=== PATIENT | male | born 1950 | race Caucasian/White ===

== ENCOUNTER → 2017-08-08 | Outpatient (REF) | payer MEDICARE, OTHER | LOC: M LAB REF 16:27 | DX: 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, including tongue (principal) | CPT/HCPCS: 88305 ==

== ENCOUNTER → 2019-11-26 | Outpatient (REF) | payer MEDICARE, OTHER | LOC: M LAB REF 17:01 | PROVIDERS: ATTEND Family Medicine | DX: M10.9 Gout, unspecified (principal) ==

== ENCOUNTER → 2020-11-28 | Outpatient (REF) | payer MEDICARE, OTHER | LOC: M LAB REF 16:24 | PROVIDERS: ATTEND Family Medicine | DX: M10.9 Gout, unspecified (principal) ==

== ENCOUNTER → 2021-03-28 | Outpatient (REF) | payer MEDICARE, OTHER | LOC: M LAB REF 18:27 | PROVIDERS: ATTEND Otolaryngology | DX: 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, including tongue (principal) ==

== ENCOUNTER → 2021-03-29 | Outpatient (CLI) | payer MEDICARE, OTHER ==
[2021-03-29 11:52] LABS: BLOOD UREA NITROGEN 16 MG/DL (7-18); GLOMERULAR FILTRATION RATE > 60.0 (>42)
== END ==
LOC: M LAB 10:17
PROVIDERS: ATTEND Otolaryngology
DX: Z01.812 Encounter for preprocedural laboratory examination (principal)

== ENCOUNTER → 2021-04-04 | Outpatient (CLI) | payer MEDICARE, OTHER ==
[~2021-04-04] MED LIST: ISOVUE-370 76% 100ML VIAL As Ordered ONE
--- NOTE | 2021-04-04 12:11 | REPVR ---
PROCEDURE INFORMATION: Exam: CT Neck With Contrast Exam date and time: 04/04/2021 11:31 AM Age: 70 years old Clinical indication: Other: Leukoplakia of oral mucosa, including tongue TECHNIQUE: Imaging protocol: Computed tomography images of the neck with contrast. Radiation optimization: All CT scans at this facility use at least one of these dose optimization techniques: automated exposure control; mA and/or kV adjustment per patient size (includes targeted exams where dose is matched to clinical indication); or iterative reconstruction. Contrast material: ISOVUE 370; Contrast volume: 75 ml; Contrast route: INTRAVENOUS (IV); COMPARISON: MRI ORBIT FACE NECK W/O FOLL W 07/10/2015 5:57 PM FINDINGS: Paranasal sinuses: Mild mucosal thickening is present in the maxillary sinuses. Nasopharynx: Unremarkable. Oropharynx: Unremarkable. No significant tonsillar enlargement. Hypopharynx: Unremarkable. Larynx: Unremarkable. Normal epiglottis. Retropharyngeal space: Unremarkable. Submandibular/Parotid glands: Normal. Glands are normal in size. Thyroid: Normal. No enlarged or calcified nodules. Lymph nodes: Unremarkable. No lymphadenopathy. Trachea: Visualized trachea is unremarkable. Lungs: Unremarkable as visualized. Bones/joints: Moderate/severe degenerative changes of the cervical spine are present. There is moderate/severe spinal canal stenosis and severe bilateral neural foraminal narrowing at C4-C5, C5-C6, and C6-C7 due to posterior disc osteophyte complexes and uncinate spurring. Soft tissues: Unremarkable. No significant soft tissue swelling. IMPRESSION: No acute abnormality. Electronically signed by: Guillermo Portillo On 04/04/2021 12:07:52 PM
== END ==
LOC: M RAD 10:57
PROVIDERS: ATTEND Otolaryngology
DX: 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, including tongue (principal)
CPT/HCPCS: 70491; Q9967

== ENCOUNTER → 2021-04-18 | Outpatient (CLI) | payer MEDICARE, OTHER ==
[~2021-04-18] MED LIST changes: +ADV100INH INH; +ATOR40TA75 PO; +BAYE81TA10 PO; +CLOP75TA2 PO; -ISOVUE-370 76% 100ML VIAL As Ordered ONE; +NITR4TASL SL; +OMEP-218 PO; +PROAAER10 INH; +THERTAB52 PO
== END ==
LOC: M LABSMTC 10:54
PROVIDERS: ATTEND Anesthesiology
DX: Z01.818 Encounter for other preprocedural examination (principal); Z11.52 Encounter for screening for COVID-19

== ENCOUNTER 2021-04-23 08:36 | Day surgery (SDC) | payer MEDICARE, OTHER ==
[~2021-04-23] VITALS: Ht 177.8 cm; Wt 94.3 kg
[~2021-04-23 08:36] MED LIST changes: +NS 1,000 ML IV ONE
--- OUTSIDE RECORDS SUMMARY | 2021-04-23 09:14 | CCD | Continuity of Care Document ---
Author Author Yuri NOLASCO MD Organization Unknown Address [address] [facility] [address] [place] [address] Phone [phone] Care Team Providers Care Ship Harbor Pilot Name Role Phone Justin Garrison JOSE AUTM [phone] Pernell Reyes M.D. AUTM [phone] Problems Active Problems Provider Date Allergic asthma without status asthmaticus Katerina Bahena Onset: 07/07/2013 Basal Cell Carcinoma Skin Lower Limb Including Hip Vishnu patel M.D. Onset: 07/07/2013 Leukoplakia of oral mucosa Abdirahman Nolasco MD Onset: 2015 Social History Type Date Description Comments Sex Unknown ETOH Use 2-3 A Week Tobacco Use Start: Unknown Patient has never smoked Recreational Drug Use Denies Drug Use Allergies and adverse reactions Active Allergies Criticality Reaction | Severity Comments Date Penicillin Unable to assess criticality hives 07/07/2013 Medications Active Medications SIG Qnty Indications Ordering Provide r Date Advair Diskus 250-50mcg/Dose Aeros ol 1 puff bid. rinse mouth after using 60units Unknown Atorvastatin Calcium 40mg Tablets 1 po qd Unknown Clopidogrel Bisulfate 75mg Tablets Unknown Aspirin 81mg Tablets 1 by mouth every day Unknown Proair HFA 108(90Base) mcg/Act Aer osol 2 puffs four times a day as needed Unknown Nitroglycerin Unknown Omeprazole 20mg Capsules DR Take One Capsule By Mouth Daily Unknown 0 Nystatin 160554Sstn/ML Suspension 5ml swish in the mouth several minuts before swallowing four times a day for 7 days Unknown Immunizations Description No Information Available Vital Signs Date Vital Result Comment 04/09/2021 7:06am Height 70 inches 5'10" Weight 225.00 lb BMI (Body Mass Index) 32.3 kg/m2 Shannon Body Weight 166 lb Weight 102.060 kg BSA (Body Surface Area) 2.19 m2 03/28/2021 7:10am Height 70 inches 5'10" Weight 225.00 lb BMI (Body Mass Index) 32.3 kg/m2 Shannon Body Weight 166 lb Weight 102.060 kg BSA (Body Surface Area) 2.19 m2 Results Test Acquired Date Facility Test Result H/L Range Note Xray 04/04/2021 [facility] Radiology Dept [address] [place] [address] [id number] [phone] CT Neck Soft Tissue W Contrast <pending> BUN & Creatinine ([facility]) 03/29/2021 [facility] Main Lab [address] [place] [address] [id number] [phone] Blood Urea Nitrogen 16 mg/dL Normal 7-18 1 Creatinine With GFR 03/29/2021 [facility] Main Lab [address] [place] [address] [id number] [phone] Creatinine For GFR 1.00 mg/dL Normal 0.70-1.30 Glomerular Filtration Rate > 60.0 Normal >42 2 Laboratory test finding 03/28/2021 [facility] Main Lab [address] [place] [address] [id number] [phone] Pathology Request For Service (SEE NOTE) 3 1 note:<nlbl:demographic_chang ed> 2 Units are mL/min/1.73 m2 Chronic Kidney Disease Staging per NKF: Stage I & II GFR >=60 Normal to Mildly Decreased Stage III GFR 30-59 Moderately Decreased Stage IV GFR 15-29 Severely Decreased Stage V GFR <15 Very Little GFR Left ESRD GFR <15 on GRIP ASSEMBLER 3 FINAL DIAGNOSIS Left lateral oral tongue, lesion, biopsy: Hyperkeratotic squamous mucosa with moderate squamous atypia. The case was also sent to [facility] for consultation, see report [id number] scanned in EMR under pathology module. 04/04/2021 - 1536 CLINICAL DIAGNOSIS Lesion 03/29/2021 - 1054 GROSS DIAGNOSIS Received in formalin labeled "Yuri Arthur, designated left lateral oral tongue" is a 0.4 cm punch of oral mucosa. All in one. - 03/29/2021 - 1054 PRELIMINARY DIAGNOSIS . 04/04/2021 - 1536 Signed Don Conner MD 03/30/2021 1245 (Prelim) Signed Don Conner MD 04/04/2021 1536 Procedures Date Code Description Status 03/28/2021 40238 Office/Outpatient Established Mo d MDM 30-39 Min Completed 03/28/2021 89670 Biopsy Tongue Anterior Two-Third s Completed 03/14/2021 23606 Office/Outpatient Established Mo d MDM 30-39 Min Completed 11/08/2020 90559 Office/Outpatient Established SF MDM 10-19 Min Completed Medical Devices Description No Information Available Encounters Type Date Location Provider Dx Diagnosis Office Visit 03/28/2021 7:00a [facility] Abdirahman Nolasco MD 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, including tongue Office Visit 03/14/2021 8:15a [facility] Abdirahman Nolasco MD 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, including tongue Office Visit 11/08/2020 8:15a [facility] Abdirahman Nolasco MD 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, including tongue Assessments Date Code Description Provider 04/09/2021 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, incl uding tongue Abdirahman Nolasco MD 03/28/2021 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, incl uding tongue Abdirahman Nolasco MD 03/14/2021 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, incl uding tongue Abdirahman Nolasco MD 11/08/2020 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, incl uding tongue Abdirahman Nolasco MD Plan of Treatment Future Appointment(s):* 05/10/2021 8:00 am - Abdirahman Nolasco MD at [facility] 04/09/2021 - Abdirahman Nolasco MD* 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, including tongue* Follow up:* 2 m Functional Status Description No Information Available Mental Status Description No Information Available Referrals Description No Information Available
--- OUTSIDE RECORDS SUMMARY | 2021-04-23 09:14 | CCD | Continuity of Care Document ---
Author Author Yuri NOLASCO MD Organization Unknown Address [address] [facility] [address] [place] [address] Phone [phone] Care Team Providers Care Online Merchandising Coordinator Name Role Phone Justin Garrison JOSE AUTM [phone] Pernell Reyes M.D. AUTM [phone] Problems Active Problems Provider Date Allergic asthma [...] Capsule By Mouth Daily Unknown 0 Nystatin [id number]/ML Suspension 5ml swish in the mouth several minuts before swallowing four times a day for 7 days Unknown Immunizations Description No Information Available Vital Signs Date Vital Result Comment 03/28/2021 7:10am Height 70 inches 5'10" Weight 225.00 lb BMI (Body Mass Index) 32.3 kg/m2 Reynolds Body Weight 166 lb Weight 102.060 kg BSA (Body Surface Area) 2.19 m2 03/14/2021 8:12am Height 70 inches 5'10" Weight 220.00 lb BMI (Body Mass Index) 31.6 kg/m2 Reynolds Body Weight 166 lb Weight 99.792 kg BSA (Body Surface Area) 2.17 m2 Results Test Acquired Date Facility Test Result H/L Range Note Xray 04/04/2021 [facility] Radiology Dept [address] [place] [address] [phone] CT Neck Soft Tissue W Contrast <pending> BUN & Creatinine ([facility]) 03/29/2021 [facility] Main Lab [address] [place] [address] [id number] [phone] Blood Urea Nitrogen 16 mg/dL Normal 7-18 1 Creatinine With GFR 03/29/2021 [facility] Main Lab [address] [place] [address] [id number] [phone] Creatinine For GFR 1.00 mg/dL Normal 0.70-1.30 Glomerular Filtration Rate > 60.0 Normal >42 2 Laboratory test finding 03/28/2021 [facility] Main Lab [address] [place] [address] [phone] Pathology Request For Service (SEE NOTE) 3 1 note:<nlbl:demographic_chang ed> 2 Units are mL/min/1.73 m2 Chronic Kidney Disease Staging per NKF: Stage I & II GFR >=60 Normal to Mildly Decreased Stage III GFR 30-59 Moderately Decreased Stage IV GFR 15-29 Severely Decreased Stage V GFR <15 Very Little GFR Left ESRD GFR <15 on WOODWORKER HELPER 3 FINAL DIAGNOSIS Left lateral oral tongue, lesion, biopsy: Hyperkeratotic squamous mucosa with moderate squamous atypia. The case was also sent to [facility] for consultation, see report [id number] scanned in EMR under pathology module. 04/04/2021 [...] 1536 Procedures Date Code Description Status 03/28/2021 72544 Office/Outpatient Established Mo d MDM 30-39 Min Completed 03/28/2021 90549 Biopsy Tongue Anterior Two-Third s Completed 03/14/2021 88195 Office/Outpatient Established Mo d MDM 30-39 Min Completed 11/08/2020 13594 Office/Outpatient Established SF MDM 10-19 Min Completed Medical Devices Description No Information Available Encounters Type Date Location Provider Dx Diagnosis Office Visit 03/28/2021 7:00a [facility] Abdirahman Nolasco MD 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, including tongue Office Visit 03/14/2021 8:15a [facility] Abdirahman Nolasco MD 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, including tongue Office Visit 11/08/2020 8:15a [facility] Abdirahman Nolasco MD 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, including tongue Assessments Date Code Description Provider 03/28/2021 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, incl uding tongue Abdirahman Nolasco MD 03/14/2021 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, incl uding tongue Abdirahman Nolasco MD 11/08/2020 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, incl uding tongue Abdirahman Nolasco MD Plan of Treatment Future Appointment(s):* 04/09/2021 7:00 am - Abdirahman Nolasco MD at [facility] * 05/10/2021 8:00 am - Abdirahman Nolasco MD at [facility] 03/28/2021 - Abdirahman Nolasco MD* 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
--- OUTSIDE RECORDS SUMMARY | 2021-04-23 09:15 | CCD | Continuity of Care Document ---
Author Author Yuri DICKERSON M.D. Organization Unknown Address [address] [place] [address] Phone [phone] Care Team Providers Care Furnace Attendant Name Role Phone Pernell Reyes M.D. AUTM [phone] Problems Active Problems Provider Date History of polyp of colon Daniella Jenkins Onset: Social History Type Date Description Comments Sex Unknown ETOH Use Occasionally Tobacco Use Start: Unknown Patient has never smoked Allergies and adverse reactions Active Allergies Criticality Reaction | Severity Comments Date Penicillin Unable to assess criticality Itch 09/29/2012 Medications Active Medications SIG Qnty Indications Ordering Provide r Date Suprep Bowel Prep Kit 17.5-3.13-1.6GM/177ML Solution use as directed 354ml Joseph Dickerson M.D. 02/27/2021 Lipitor 40mg Tablets take one tablet by mouth every day 90tabs Pernell Reyes M.D. 01/12/[address] 1 tabs by mouth every day 90caps Unknown Advair Diskus 100-50mcg/Dose Aerosol Unknown Multiple Vitamin Tablets Unknown Clopidogrel Bisulfate 75mg Tablets Take One Tablet By Mouth Every Day Unknown Aspirin 81mg Tablets DR Unknown Proair HFA 108(90Base) mcg/Act Aerosol Unknown Nitrostat 0.4mg Tablets Sub Unknown Immunizations Description No Information Available Vital Signs Date Vital Result Comment 02/27/2021 3:30pm Height 70 inches 5'10" Weight 222.00 lb BP Systolic 117 mmHg BP Diastolic 84 mmHg Heart Rate 80 /min BMI (Body Mass Index) 31.9 kg/m2 Weight 100.699 kg Body Temperature 97.2 F 01/18/2016 10:10am Height 70 inches 5'10" Weight 233.00 lb BP Systolic 111 mmHg BP Diastolic 72 mmHg Heart Rate 70 /min BMI (Body Mass Index) 33.4 kg/m2 Weight 105.689 kg Results Description No Information Available Procedures Date Code Description Status 02/27/2021 83787 Office/Outpatient New Low MDM 30 -44 Minutes Completed Medical Devices Description No Information Available Encounters Type Date Location Provider Dx Diagnosis Office Visit 02/27/2021 3:00p Main Office Joseph Dickerson M.D. Z 86.010 Personal history of colonic polyps Assessments Date Code Description Provider 02/27/2021 Z86.010 Personal history of colonic poly ps Joseph Dickerson M.D. Plan of Treatment Future Appointment(s):* 04/10/2021 7:30 am - Jose at Main Office * 04/23/2021 12:45 pm - Joseph Dickerson M.D. at Main Office 02/27/2021 - Joseph Dickerson M.D.* Z86.010 Personal history of colonic polyps* Comments:* 70 year old white male in no acute distress. His last colonoscopy was in 2015. Tubular adenoma polyp was biopsied. Hemorrhoids and Diverticulosis were noted.He has daily bowel movements. Denies rectal bleeding, abdominal pain, unexplained weight loss or a family history of colon cancer or colon polyps.Appetite is healthy. He denies nausea, vomiting, dysphagia or GERD. Plan:1. Colonoscopy to cecum2. Informed consent. Functional Status Description No Information Available Mental Status Description No Information Available Referrals Description No Information Available
--- OUTSIDE RECORDS SUMMARY | 2021-04-23 09:15 | CCD ---
Author Author [facility] Organization [facility] Address Unknown Phone Unavailable Care Team Providers Care Lastex Operator Name Role Phone Don Conner MD Unavailable Unavailable Don Conner MD Unavailable Unavailable Don Conner MD Unavailable Unavailable Don Conner MD Unavailable Unavailable Don Conner MD Unavailable Unavailable Don Conner MD Unavailable Unavailable Kallie Dickerson MD Unavailable Unavailable Kallie Dickerson MD Unavailable Unavailable Kallie Dickerson MD Unavailable Unavailable Kallie Dickerson MD Unavailable Unavailable Kallie Dickerson MD Unavailable Unavailable Kallie Dickerson MD Unavailable Unavailable Kallie Dickerson MD Unavailable Unavailable Kallie Dickerson MD Unavailable Unavailable Kallie Dickerson MD Unavailable Unavailable Kallie Dickerson MD Unavailable Unavailable Kallie Dickerson MD Unavailable Unavailable Kallie Dickerson MD Unavailable Unavailable Kallie Dickerson MD Unavailable Unavailable Kallie Dickerson MD Unavailable Unavailable Kallie Dickerson MD Unavailable Unavailable Kallie Dickerson MD Unavailable Unavailable Kallie Dickerson MD Unavailable Unavailable Kallie Dickerson MD Unavailable Unavailable Kallie Dickerson MD Unavailable Unavailable Kallie Dickerson MD Unavailable Unavailable Kallie Dickerson MD Unavailable Unavailable Kallie Dickerson MD Unavailable Unavailable Kallie Dickerson MD Unavailable Unavailable Kallie Dickerson MD Unavailable Unavailable Kallie Dickerson MD Unavailable Unavailable Kallie Dickerson MD Unavailable Unavailable Kallie Dickerson MD Unavailable Unavailable Kallie Dickerson MD Unavailable Unavailable Jayla S Joseph MERRILL Unavailable Unavailable Jayla S Joseph MERRILL Unavailable Unavailable Jayla S Joseph MERRILL Unavailable Unavailable Jayla S Joseph MERRILL Unavailable Unavailable Jayla S Joseph MERRILL Unavailable Unavailable Jayla S Joseph MERRILL Unavailable Unavailable Jayla S Joseph MD Unavailable Unavailable Jayla S Joseph MD Unavailable Unavailable Jayla S Joseph MERRILL Unavailable Unavailable Jayla S Joseph MERRILL Unavailable Unavailable Jayla S Joseph MERRILL Unavailable Unavailable Jayla S Joseph MERRILL Unavailable Unavailable Jayla S Joseph MERRILL Unavailable Unavailable Jayla S Joseph MERRILL Unavailable Unavailable Jayla S Joseph MERRILL Unavailable Unavailable Jayla S Joseph MERRILL Unavailable Unavailable Kallie Dickerson MD Unavailable Unavailable Kallie Dickerson MD Unavailable Unavailable Kallie Dickerson MD Unavailable Unavailable Kallie Dickerson MD Unavailable Unavailable Kallie Dickerson MD Unavailable Unavailable Kallie Dickerson MD Unavailable Unavailable Kallie Dickerson MD Unavailable Unavailable Lukasz Reyes MD Unavailable Unavailable Lukasz Reyes MD Unavailable Unavailable Lukasz Reyes MD Unavailable Unavailable Lukasz Reyes MD Unavailable Unavailable Lukasz Reyes MD Unavailable Unavailable Lukasz Reyes MD Unavailable Unavailable Lukasz Reyes MD Unavailable Unavailable Lukasz Reyes MD Unavailable Unavailable Lukasz Reyes MD Unavailable Unavailable Lukasz Reyes MD Unavailable Unavailable Lukasz Reyes MD Unavailable Unavailable Lukasz Reyes MD Unavailable Unavailable Lukasz Reyes MD Unavailable Unavailable Lukasz Reyes MD Unavailable Unavailable Lukasz Reyes MD Unavailable Unavailable Lukasz Reyes MD Unavailable Unavailable Lukasz Reyes MD Unavailable Unavailable Lukasz Reyes MD Unavailable Unavailable Lukasz Reyes MD Unavailable Unavailable Lukasz Reyes MD Unavailable Unavailable Lukasz Reyes MD Unavailable Unavailable Lukasz Reyes MD Unavailable Unavailable Lukasz Reyes MD Unavailable Unavailable Lukasz Reyes MD Unavailable Unavailable Lukasz Reyes MD Unavailable Unavailable Lukasz Reyes MD Unavailable Unavailable Lukasz Reyes MD Unavailable Unavailable Lukasz Reyes MD Unavailable Unavailable Lukasz Reyes MD Unavailable Unavailable Lukasz Reyes MD Unavailable Unavailable Lukasz Reyes MD Unavailable Unavailable Lukasz Reyes MD Unavailable Unavailable Lukasz Reyes MD Unavailable Unavailable Lukasz Reyes MD Unavailable Unavailable Lukasz Reyes MD Unavailable Unavailable Lukasz Reyes MD Unavailable Unavailable Lukasz Reyes MD Unavailable Unavailable Lukasz Reyes MD Unavailable Unavailable Lukasz Reyes MD Unavailable Unavailable Lukasz Reyes MD Unavailable Unavailable Lukasz Reyes MD Unavailable Unavailable Lukasz Reyes MD Unavailable Unavailable Lukasz Reyes MD Unavailable Unavailable Lukasz Reyes MD Unavailable Unavailable Lukasz Reyes MD Unavailable Unavailable Lukasz Reyes MD Unavailable Unavailable Lukasz Reyes MD Unavailable Unavailable Lukasz Reyes MD Unavailable Unavailable Lukasz Reyes MD Unavailable Unavailable Lukasz Reyes MD Unavailable Unavailable Lukasz Reyes MD Unavailable Unavailable Eric F Pernell MERRILL Unavailable Unavailable Eric F Pernell MERRILL Unavailable Unavailable Lukasz Reyes MD Unavailable Unavailable Lukasz Reyes MD Unavailable Unavailable Lukasz Reyes MD Unavailable Unavailable Lukasz Reyes MD Unavailable Unavailable Lukasz Reyes MD Unavailable Unavailable Lukasz Reyes MD Unavailable Unavailable Lukasz Reyes MD Unavailable Unavailable Lukasz Reyes MD Unavailable Unavailable Lukasz Reyes MD Unavailable Unavailable Lukasz Reyes MD Unavailable Unavailable Lukasz Reyes MD Unavailable Unavailable Lukasz Reyes MD Unavailable Unavailable Lukasz Reyes MD Unavailable Unavailable Lukasz Reyes MD Unavailable Unavailable Lukasz Reyes MD Unavailable Unavailable Lukasz Reyes MD Unavailable Unavailable Lukasz Reyes MD Unavailable Unavailable Lukasz Reyes MD Unavailable Unavailable Lukasz Reyes MD Unavailable Unavailable Lukasz Reyes MD Unavailable Unavailable Lukasz Reyes MD Unavailable Unavailable Lukasz Reyes MD Unavailable Unavailable Lukasz Reyes MD Unavailable Unavailable Lukasz Reyes MD Unavailable Unavailable MCELHERAN, PILO PA Unavailable Unavailable MCELHERAN, PILO PA Unavailable Unavailable MCELHERAN, PILO PA Unavailable Unavailable MCELHERAN, PILO PA Unavailable Unavailable MCELHERAN, PILO PA Unavailable Unavailable MCELHERAN, PILO PA Unavailable Unavailable MCELHERAN, PILO PA Unavailable Unavailable MCELHERAN, PILO PA Unavailable Unavailable MCELHERAN, PILO PA Unavailable Unavailable MCELHERAN, PILO PA Unavailable Unavailable MCELHERAN, PILO PA Unavailable Unavailable MCELHERAN, PILO PA Unavailable Unavailable MCELHERAN, PILO PA Unavailable Unavailable MCELHERAN, PILO PA Unavailable Unavailable MCELHERAN, PILO PA Unavailable Unavailable MCELHERAN, PILO PA Unavailable Unavailable MCELHERAN, PILO PA Unavailable Unavailable MCELHERAN, PILO PA Unavailable Unavailable MCELHERAN, PILO PA Unavailable Unavailable MCELHERAN, PILO PA Unavailable Unavailable MCELHERAN, PILO PA Unavailable Unavailable MCELHERAN, PILO PA Unavailable Unavailable MCELHERAN, PILO PA Unavailable Unavailable MCELHERAN, PILO PA Unavailable Unavailable MCELHERAN, PILO PA Unavailable Unavailable MCELHERAN, PILO PA Unavailable Unavailable MCELHERAN, PILO PA Unavailable Unavailable MCELHERAN, PILO PA Unavailable Unavailable MCELHERAN, PILO PA Unavailable Unavailable Rew, N Rolando MANAGER BUSINESS PLANNING Unavailable Unavailable Rew, N Rolando MANAGER BUSINESS PLANNING Unavailable Unavailable Rew, N Rolando MANAGER BUSINESS PLANNING Unavailable Unavailable Rew, N Rolando MANAGER BUSINESS PLANNING Unavailable Unavailable Shaquille, N Rolando MANAGER BUSINESS PLANNING Unavailable Unavailable Rew, N Rolando MANAGER BUSINESS PLANNING Unavailable Unavailable Shaquille, N Rolando MANAGER BUSINESS PLANNING Unavailable Unavailable Rew, N Rolando MANAGER BUSINESS PLANNING Unavailable Unavailable Rew, N Rolando MANAGER BUSINESS PLANNING Unavailable Unavailable Rew, N Rolando MANAGER BUSINESS PLANNING Unavailable Unavailable Rew, N Rolando MANAGER BUSINESS PLANNING Unavailable Unavailable Rew, N Rolando MANAGER BUSINESS PLANNING Unavailable Unavailable Rew, N Rolando MANAGER BUSINESS PLANNING Unavailable Unavailable Shaquille, N Rolando MANAGER BUSINESS PLANNING Unavailable Unavailable Shaquille, N Rolando MANAGER BUSINESS PLANNING Unavailable Unavailable Rew, N Rolando MANAGER BUSINESS PLANNING Unavailable Unavailable Rew, N Rolando MANAGER BUSINESS PLANNING Unavailable Unavailable Shaquille, N Rolando MANAGER BUSINESS PLANNING Unavailable Unavailable Shaquille, N Rolando MANAGER BUSINESS PLANNING Unavailable Unavailable Rew, N Rolando MANAGER BUSINESS PLANNING Unavailable Unavailable Rew, N Rolando MANAGER BUSINESS PLANNING Unavailable Unavailable Rew, N Rolando MANAGER BUSINESS PLANNING Unavailable Unavailable Rew, N Rolando MANAGER BUSINESS PLANNING Unavailable Unavailable Shaquille, N Rolando MANAGER BUSINESS PLANNING Unavailable Unavailable Shaquille, N Rolando MANAGER BUSINESS PLANNING Unavailable Unavailable Rew, N Rolando MANAGER BUSINESS PLANNING Unavailable Unavailable Rew, N Rolando MANAGER BUSINESS PLANNING Unavailable Unavailable Rew, N Rolando MANAGER BUSINESS PLANNING Unavailable Unavailable Shaquille, N Rolando MANAGER BUSINESS PLANNING Unavailable Unavailable Rew, N Rolando MANAGER BUSINESS PLANNING Unavailable Unavailable Rew, N Rolando MANAGER BUSINESS PLANNING Unavailable Unavailable Shaquille, N Rolando MANAGER BUSINESS PLANNING Unavailable Unavailable Rew, N Rolando MANAGER BUSINESS PLANNING Unavailable Unavailable Richmond, D Joni Unavailable Unavailable Richmond, D Joni Unavailable Unavailable Richmond, D Joni Unavailable Unavailable Richmond, D Joni Unavailable Unavailable Richmond, D Joni Unavailable Unavailable Richmond, D Joni Unavailable Unavailable Richmond, D Joni Unavailable Unavailable Richmond, D Joni Unavailable Unavailable Richmond, D Joni Unavailable Unavailable Richmond, D Joni Unavailable Unavailable Richmond, D Joni Unavailable Unavailable Richmond, D Joni Unavailable Unavailable Richmond, D Joni Unavailable Unavailable Richmond, D Joni Unavailable Unavailable Richmond, D Joni Unavailable Unavailable Richmond, D Joni Unavailable Unavailable Richmond, D Join Unavailable Unavailable Richmond, D Joni Unavailable Unavailable Richmond, D Joni Unavailable Unavailable Richmond, D Joni Unavailable Unavailable Richmond, D Joni Unavailable Unavailable Richmond, D Joni Unavailable Unavailable Richmond, D Joni Unavailable Unavailable Richmond, D Joni Unavailable Unavailable Richmond, D Joni Unavailable Unavailable Richmond, D Joni Unavailable Unavailable Richmond, D Joni Unavailable Unavailable Richmond, D Joni Unavailable Unavailable Richmond, D Joni Unavailable Unavailable Jian NOLASCO MD Unavailable Unavailable Jian NOLASCO MD Unavailable Unavailable Jian NOLASCO MD Unavailable Unavailable Jian NOLASCO MD Unavailable Unavailable Jian NOLASCO MD Unavailable Unavailable Jian NOLASCO MD Unavailable Unavailable Jian NOLASCO MD Unavailable Unavailable Jian NOLASCO MD Unavailable Unavailable Jian NOLASCO MD Unavailable Unavailable Jian NOLASCO MD Unavailable Unavailable Jian NOLASCO MD Unavailable Unavailable Jian NOLASCO MD Unavailable Unavailable Jian NOLASCO MD Unavailable Unavailable Jian NOLASCO MD Unavailable Unavailable Jian NOLASCO MD Unavailable Unavailable Jian NOLASCO MD Unavailable Unavailable Jian NOLASCO MD Unavailable Unavailable Jian NOLASCO MD Unavailable Unavailable Jian NOLASCO MD Unavailable Unavailable Jian NOLASCO MD Unavailable Unavailable Jian NOLASCO MD Unavailable Unavailable Jian NOLASCO MD Unavailable Unavailable Jian NOLASCO MD Unavailable Unavailable Jian NOLASCO MD Unavailable Unavailable Jian NOLASCO MD Unavailable Unavailable Jian NOLASCO MD Unavailable Unavailable Jian NOLASCO MD Unavailable Unavailable Jian NOLASCO MD Unavailable Unavailable Jian NOLASCO MD Unavailable Unavailable Jian NOLASCO MD Unavailable Unavailable Jian NOLASCO MD Unavailable Unavailable Jian NOLASCO MD Unavailable Unavailable Jian NOLASCO MD Unavailable Unavailable Jian NOLASCO MD Unavailable Unavailable Re-disclosure Warning The records that you are about to access may contain information from federally-assisted alcohol or drug abuse programs. If such information is present, then the following federally mandated warning applies: This information has been disclosed to you from records protected by federal confidentiality rules (42 CFR part 2). The federal rules prohibit you from making any further disclosure of this information unless further disclosure is expressly permitted by the written consent of the person to whom it pertains or as otherwise permitted by 42 CFR part 2. A general authorization for the release of medical or other information is NOT sufficient for this purpose. The Federal rules restrict any use of the information to criminally investigate or prosecute any alcohol or drug abuse patient.The records that you are about to access may contain highly sensitive health information, the redisclosure of which is protected by Article 27-F of the [facility] Public Health law. If you continue you may have access to information: Regarding HIV / AIDS; Provided by facilities licensed or operated by the [facility] Office of Mental Health; or Provided by the [facility] Office for People With Developmental Disabilities. If such information is present, then the following [facility] mandated warning applies: This information has been disclosed to you from confidential records which are protected by state law. State law prohibits you from making any further disclosure of this information without the specific written consent of the person to whom it pertains, or as otherwise permitted by law. Any unauthorized further disclosure in violation of state law may result in a fine or correction sentence or both. A general authorization for the release of medical or other information is NOT sufficient authorization for further disc losure. Allergies and Adverse Reactions Type Description Substance Reaction Status Data Source(s ) Propensity to adverse reactions PENICILLINS Penicillin Rash [facility] Family History Family Member Name Family Member Gender Family Member Status Date o f Status Description Data Source(s) Unknown Female Problem [facility] ([facility]) Unknown Unknown Problem [facility] ([facility]) Unknown Male Problem [facility] ([facility] () Unknown Female Problem [facility] ([facility]) Unknown Female Encounters Encounter Providers Location Date Indications Data Source(s ) Outpatient Admitter: Don Conner MDReferrer: Don Conner MD 04/03/2021 12:00:00 AM EDT Leukoplakia of oral mucosa, including tongue [facility] Leukoplakia of oral mucosa, including to ngue Outpatient Attender: Rolando LARA.JOSE ALEJANDRO-SJP.JOSE ALEJANDRO 021 12:00:00 AM EDT - 04/02/2021 03:29:54 PM EDT [facility] Outpatient Attender: MANJEET Nolasco/Emily/William/Reind l 03/28/2021 07:00:00 AM EDT [facility] ([facility]) Outpatient Attender: MANJEET Nolasco/Emily/William/Reind l 03/14/2021 08:15:00 AM EDT [facility] ([facility]) Outpatient Attender: Joseph Dickerson MD Main Office 02/27/2021 03:00:00 PM EDT [facility] ([facility]) Outpatient Attender: PILO BERNARD Physical Therapy 12/11/2020 02:45:00 PM EDT [facility] ([facility]) Outpatient Attender: Pernell Womack 12/05 08:30:00 AM EDT [facility] ([facility] ) Outpatient Attender: MANJEET Nolasco/Leah/William/Reind l 11/08/2020 08:15:00 AM EDT [facility] ([facility] Outpatient Attender: Joni Gamez [id number] 06/15/2020 12:00:00 AM EST Unilateral primary osteoarthritis, right knee [facility] Unilateral primary osteoarthritis, right knee Outpatient Referrer: Joni Gamez 06/15/2020 12:00:00 AM EST Pain in right knee [facility] Pain in right knee Outpatient Attender: Pernell Womack 05/31 07:00:00 AM EST [facility] ([facility] ) Outpatient Attender: Rolando MARTINEZ-SJP.JOSE ALEJANDRO 020 12:00:00 AM EDT - 03/14/2020 12:25:47 PM EDT [facility] Immunizations Vaccine Date Status Description Data Source(s) COVID-19 VACCINE Moderna 03/27/2021 12:00:00 AM EDT completed [facility] Vaccine Series Complete: YESThis Data wa s Submitted to [facility] [employer]. COVID-19 VACCINE Moderna 06/27/2020 12:00:00 AM EST completed [facility] Vaccine Series Complete: YESThis Data wa s Submitted to [facility] [employer]. COVID-19 VACCINE Moderna 05/30/2020 12:00:00 AM EST completed [facility] Vaccine Series Complete: NOThis Data was Submitted to [facility] [employer]. This CVX code allows reporting of a vacc ination when formulation is unknown (for example, when recording a Influenza vaccination when noted on a vaccination card) 03/06/2020 08:30:00 AM EDT completed JONI Salazar ([facility]) INFLUENZA VACCINE QUADRIVALENT (65 YR UP)/MF59 C.1/PF 03/06/2020 12:00:00 AM EDT completed [facility] Medications Medication Brand Name Start Date Product Form Dose Route Admi nistrative Instructions Pharmacy Instructions Status Indications Reaction Description Data Source(s) 240 mcg/0.7 mL 03/27/2021 12:00:00 AM EDT syringe 0 INJECT DIRECTED INJECT DIRECTED SOLD: 03/27/2021 [facility] 100 mcg/0.5 mL 03/27/2021 12:00:00 AM EDT suspension 0 INJECT DIRECTED PER STANDING ORDER [3RD DOSE] INJECT DIRECTED PER STANDING ORDER [3RD DOSE] SOLD: 03/27/2021 [facility] 100,000 unit/mL 03/13/2021 12:00:00 AM EDT suspension 300 SWISH WITH 5ML FOR 2 MINUTES THEN SPIT OUT FOUR TIMES A DAY SWISH WITH 5ML FOR 2 MINUTES THEN SPIT OUT FOUR TIMES A DAY SOLD: 03/13/2021 [facility] 100,000 unit/mL 03/13/2021 12:00:00 AM EDT suspension 300 SWISH WITH 5ML FOR 2 MINUTES THEN SPIT OUT FOUR TIMES A DAY SWISH WITH 5ML FOR 2 MINUTES THEN SPIT OUT FOUR TIMES A DAY SOLD: 03/26/2021 [facility] SUPREP BOWEL PREP KIT 17.5-3.13-1.6 gram SODIUM, POTASSIUM,M AG SULFATES 02/28/2021 12:00:00 AM EDT recon soln 354 USE DIRECTED USE DIRECTED SOLD: 03/11/2021 [facility] Suprep Bowel Prep Kit Suprep Bowel Prep Kit 02/27/2021 12:00:00 AM EDT active [facility] ([facility]) 4 mg 12/13/2020 12:00:00 AM EDT tablets,dose pack 21 DIRECTED WITH FOOD DIRECTED WITH FOOD SOLD: 12/13/2020 [facility] Methylprednisolone 4 MG Oral Tablet [Medrol] Medrol 05/2021 12:00:00 AM EDT active MED[facility] ( [facility]) Omeprazole 20 MG Delayed Release Oral Ca psule Omeprazole 20 MG Oral Capsule Delayed Release (PriLOSEC) Omeprazole 20 MG Oral Capsule Delayed Re lease (PriLOSEC) 06/05/2020 12:00:00 AM EST 20 mg Oral active Take 20 mg by mouth daily [facility] atorvastatin 40 MG Oral Tablet Atorvastatin Calcium 40 MG Oral Tablet (LIPITOR) Atorvastatin Calcium 40 MG Oral Tablet (LIPITOR) 06/05/2020 12:00:00 AM EST 40 mg Oral active Take [address] [facility] clopidogrel 75 MG Oral Tablet Clopidogrel Bisulfate 75 MG Oral Tablet (PLAVIX) Clopidogrel Bisulfate 75 MG Oral Tablet (PLAVIX) 06/05/2020 12:00:00 AM EST 75 mg Oral active Take [address] [facility] 60 ACTUAT Fluticasone propionate 0.25 MG /ACTUAT / salmeterol 0.05 MG/ACTUAT Dry Powder Inhaler Fluticasone-Salmeterol 250-50 MCG/DOSE Inhalation Aerosol Powder Breath Activated (ADVAIR) Fluticasone-Salmeterol 250-50 MCG/DOSE I nhalation Aerosol Powder Breath Activated (ADVAIR) 03/06/2020 12:00:00 AM EDT active INHALE ONE PUFF BY MOUTH TWO TANVI ES A DAY [facility] Nitroglycerin 0.4 MG Sublingual Tablet n itroglycerin (NITROSTAT) 0.4 MG SL tablet nitroglycerin (NITROSTAT) 0.4 MG SL tablet 0.4 mg Subli ngual aborted Place 0.4 mg under t he tongue every 5 (five) minutes as needed for chest pain [facility] Insurance Providers Payer name Policy type / Coverage type Policy ID Covered democrat ID Covered democrat's relationship to denson Policy Denson Plan Information [employer] [id number] Monique [id number] [employer] [id number] SP [id number] [employer] (pr) Medigap Part B [id number] Self Medicare Natl Govt Servic Medicare Primary [id number] Self [id number] Medicare Natl Govt Servic Medicare Primary [id number] Self [id number] MEDICARE [id number] MEDICARE [id number] SP [id number] A Medicare Natl Govt Servic Medicare Primary [id number] Self [id number] MEDICARE [id number] SP [id number] Medicare Natl Govt Servic Medicare Primary [id number] Self [id number] Medicare Natl Govt Servic Medicare Primary [id number] Self MEDICARE [id number] Monique [id number] [place] [id number] Self MEDICARE A [id number] Self [id number] MEDICARE [id number] Monique [id number] UMR U [id number] Self [id number] [employer] Medigap Part B [id number] Self [id number] UMR [id number] UMR [id number] Monique [id number] [employer] Medigap Part B [id number] 14.0 Self [id number] r (New [employer]) Medigap Part B [id number] Self [id number] Umr Commercial [id number] Self [id number] Umr Commercial [id number] Self [id number] [employer] Medigap Part B [id number] 32.0 Self [id number] Medicare [place]/NGS Medicare Primary [id number] Self [id number] [employer] Ppo Medigap Part B [id number]. 5124.0 Self [id number] [employer] Medigap Part B [id number] 32.0 Self [id number] Medicare [place]/NGS Medicare Primary [id number] Self [id number] [employer] Medigap Part B [id number] Self 333 Medicare [place]/NGS Medicare Primary [id number] Self [employer] Ppo Medigap Part B [id number] Self [id number] [employer] Commercial [id number] Self [place] Primary [id number] Self MEDICARE [id number] S [id number] A [employer] PPO O [id number] S [id number] [employer] PPO P [id number] [employer] [id number] SP [id number] R [facility] [id number] SP [id number] [facility] [id number] SP [id number] [employer]/Umr (Old) Medigap Part B [id number] Self [id number] Medicare Medicare Primary [id number] [id number]. [id number] Self [id number] Umr Commercial [id number] Self [id number] Medicare Medicare Primary [id number] 2.16.840.1.758742.3.227. [id number] Self [id number] Medicare [place]/NGS Medicare Primary [id number] 2.16.840.1.864639.3.227.99.8646.28868.0 Self [id number] Medicare Medicare Primary [id number] 2.16.840.1.236457.3.227. 99.936.11835.0 Self [id number] Medicare [place]/NGS Medicare Primary [id number] 2.16.840.1.934381.3.227.99.8646.74065.0 Self [id number] Medicare Medicare Primary [id number] 2.16.840.1.565670.3.227. 99.936.70644.0 Self [id number] [employer]/Um[employer] (Old) Medigap Part B [id number] .99.4595.5124.0 Self [id number] Medicare Medicare Primary [id number] 2.16.840.1.376028.3.227. 99.936.10457.0 Self [id number] [employer] Medigap Part B [id number] 2.16.840.1.464216.3.227.99.936.2721 0.0 Self [id number] [employer] Medigap Part B [id number]9.8646.758 32.0 Self [id number] [place] Medicare Primary [id number] 2.16.840.1.734773.3.227.99.8646.53677.0 Self [id number] Medicare Medicare Primary [id number] 2.16.840.1.799613.3.227. [id number] Self [id number] [facility] Part B [id number] 32.0 Self [id number] Medicare [facility] Medicare Primary [id number] 2.16.840.1.754[id number] Self [id number] Medicare Medicare Primary [id number] 2.16.840.1.862625.3.227. 99.936.22845.0 Self [id number] [facility] [facility] Part [facility] [id number] Self [id number] Medicare [place] Medicare Primary [id number] Self [id number] Medicare Medicare Primary [id number] Self [id number] Medicare Medicare Primary [id number] Self [id number] Problems, Conditions, and Diagnoses Code Display Name Description Problem Type Effective Dates Data Source(s) 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, including to ngue Leukoplakia of oral mucosa, including tongue Diagnosis 04/03/2021 09:27:00 AM EDT [facility] Z01.810 Encounter for preprocedural cardiovascul ar examination Encounter for preprocedural cardiovascul Diagnosis 04/02/2021 02:59:26 PM EDT [facility] E78.5 Hyperlipidemia, unspecified Hyperlipidemia, unspecifie d Diagnosis 04/02/2021 02:59:26 PM EDT [facility] Z98.61 Coronary angioplasty status Coronary angioplasty statu s Diagnosis 04/02/2021 02:59:26 PM EDT [facility] M25.561 Pain in right knee Pain in right knee Diagnosis 10:30:00 AM [facility] M17.11 Unilateral primary osteoarthritis, right knee Unilateral primary osteoarthritis, right knee Diagnosis 06/15/2020 10:25:59 AM [facility] Z01.810 Preop cardiovascular exam Preop cardiovascular exam [id number] 03/31/2021 12:00:00 AM EDT [facility] Surgeries/Procedures Procedure Description Date Indications Data Source(s) ECG ROUTINE ECG W/LEAST 12 LDS W/I&R <td>POCT AMB EKG</td><td>Routine</td><td>04/02/2021 3:32 PM EDT</td><td> Coronary artery disease, s/p PTCA Preop cardiovascular exam</td><td> </td> 04/02/2021 03:32:00 PM EDT Preop cardiovascular examCoronary artery disease, s/p PTCA [facility] Preop cardiovascular exam Coronary artery disease, s/p PTCA BIOPSY TONGUE ANTERIOR TWO-THIRDS 03/28/2021 12:00:00 AM EDT [facility] ([facility], ) OFFICE OUTPATIENT VISIT 25 MINUTES 03/28/2021 12:00:00 AM EDT [facility] ([facility], ) OFFICE OUTPATIENT VISIT 25 MINUTES 03/14/2021 12:00:00 AM EDT [facility] ([facility], ) OFFICE OUTPATIENT NEW 30 MINUTES 02/27/2021 12:00:00 A M EDT [facility] ([facility]) RADEX SHOULDER COMPLETE MINIMUM 2 VIEWS 12/11/2020 12: 00:00 AM EDT [facility] ([facility] ) RADEX ANKLE COMPLETE MINIMUM 3 VIEWS 12/11/2020 12:00: 00 AM EDT [facility] ([facility]) OFFICE OUTPATIENT NEW 45 MINUTES 12/11/2020 12:00:00 A M EDT [facility] ([facility]) OFFICE OUTPATIENT VISIT 25 MINUTES 12/05/2020 12:00:00 AM EDT [facility] ([facility]) OFFICE OUTPATIENT VISIT 10 MINUTES 11/08/2020 12:00:00 AM EDT [facility] ([facility]) OFFICE OUTPATIENT VISIT 25 MINUTES 05/31/2020 12:00:00 AM EST [facility] ([facility]) Results ID Date Data Source [id number] 04/04/2021 08:01:00 AM EDT [facility] Name Value Range Interpretation Code Description Data Sophia rce(s) Supporting Document(s) Neck CT W contrast IV Laboratory test result [facility]) ID Date Data Source [id number] 04/04/2021 10:47:00 AM EDT [facility] Surgical Pathology ReportName: RONDA TRAOREN: [id number] Number: [id number] Date: 04/03/2021 00:00Received Date: 04/03/2021 09:42Physician(s): DON CONNER MD HAGHIR, SHAHANDEH F,DARWINpecimen(s) ReceivedA: Material received for consultation, [place], [place] [address], GDLRClinical 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 Consultation to rule out severe dysplasia.DiagnosisLEFT LATERAL ORAL TONGUE LESION, BIOPSY ([id number], 03/28/21): KERATOSISWITH MODERATE SQUAMOUS DYSPLASIA. (SEE MICROSCOPIC DESCRIPTION).Electronically Signed By Jamir Sharp M.D., Attending Sowmriceqnw06/3/2021 10:47:37 Gross DescriptionReceived [facility] [place], [place] are 2 H and Estained slides and one paraffin block labeled [id number] with thecorresponding pathology report./jrsMicroscopic DescriptionSections show hyperplastic squamous mucosa with surface parakeratosis andmarked cytologic atypia and mitotic figures involving the basal layerassociated with loss of cellular polarity and dyskeratosis. There is alsoa superficial lymphoplasmacytic infiltrate. I do not see evidence ofsevere dysplasia or squamous carcinoma in situ. Thank you for letting mesee this case in consultation.This report may include one or more immunohistochemical stain results thatuse analyte specific reagents. All positive and negative controls havebeen reviewed by the attending pathologist and are satisfactory. The testswere developed and their performance characteristics determined by [facility] Pathology department. They have not been c leared or approved by the USFood and Drug Administration. The FDA has determined that such clearanceor approval is not necessary. Name Value Range Interpretation Code Description Data Sophia rce(s) Supporting Document(s) ID Date Data Source [id number] 03/29/2021 10:26:[facility] Name Value Range Interpretation Code Description Data [facility](s) Supporting Document(s) Creatinine For GFR 1.00 mg/dL 0.70-1.30 Normal (applies to non -numeric results) [facility] ([facility], ) Glomerular Filtration Rate Laboratory test result Normal (applies to non- numeric results) [facility] ([facility], ) <content>Units are mL/min/1.73 m2</content>
<content></content>
<content>Chronic Kidney Disease Staging per NKF:</content>
<content></content>
<content>Stage I & II GFR >=60 Normal to Mildly Decreased</content>
<content>Stage III GFR 30- 59 Moderately Decreased</content>
<content>Stage IV GFR 15-29 Severely Decreased</content>
<content>Stage V GFR <15 Very Little GFR Left</content>
<content>ESRD GFR <15 on INSTITUTIONAL COOK</content>
<content></content> ID Date Data Source [id number] 03/29/2021 10:26:00 [facility] Name Value Range Interpretation Code Description Data Sophia rce(s) Supporting Document(s) Urea nitrogen [Mass/volume] in Serum or Plasma 16 mg/dL 7 -18 Normal (applies to non-numeric results) [facility]) <content>note:<nlbl:demographic_changed> </content>
<content></content> ID Date Data Source [id number] 03/28/2021 07:30:00 AM EDT [facility] ([facility]) Name Value Range Interpretation Code Description Data Sophia rce(s) Supporting Document(s) Surgical pathology study Laboratory test result [facility] ([facility]) FINAL DIAGNOSIS Left lateral oral tongue, lesion, biopsy: Hyperkeratotic squamous mucosa with moderate squamous atypia. The case was also sent to [facility] for consultation, see report [id number] scanned in EMR under pathology module. 04/04/20211535 CLINICAL DIAGNOSIS Lesion 03/29/20211053 GROSS DIAGNOSIS Received in formalin labeled "Yuri Frank, designated left lateral oral tongue" is a 0.4 cm punch of oral mucosa. All in one. - 03/29/20211053 PRELIMINARY DIAGNOSIS . 04/04/20211535 Signed Don Conner MD 03/30/2021 1245 (Prelim) Signed Don Conner MD 04/04/2021 1536 ID Date Data Source [id number] 12/05/2020 09:50:00 AM EDT [facility] Name Value Range Interpretation Code Description Data Sophia rce(s) Supporting Document(s) Prostate specific Ag [Mass/volume] in Serum or Plasma 0.97 ng/mL [facility] This assay was performed on the Siemens Dimension EXL using the B- Galactosidase/CPRG methodology and should not be compared interchangeably with other methods. The PSA should not be used alone as a screening test for the presence or absence of malignant disease. ID Date Data Source [id number] 11/28/2020 10:46:00 AM EDT [facility] Name Value Range Interpretation Code Description Data Sophia rce(s) Supporting Document(s) Urate [Mass/volume] in Serum or Plasma 6.9 mg/dL 3.5-7.2 [facility] ([facility]) ID Date Data Source [id number] 11/28/2020 10:45:00 AM EDT [facility]) Name Value Range Interpretation Code Description Data Sophia rce(s) Supporting Document(s) Thyrotropin [Units/volume] in Serum or Plasma by Detec tion limit <= 0.05 mIU/L 3.07 uIU/mL 0.36-3.74 [facility] ([facility] ) ID Date Data Source [id number] 11/28/2020 10:45:00 AM EDT [facility] ([facility]) Name Value Range Interpretation Code Description Data Sophia rce(s) Supporting Document(s) Cholesterol in HDL [Mass/volume] in Serum or Plasma 50 mg/dL 35-60 [facility] ([facility]) Cholesterol [Mass/volume] in Serum or Plasma 123 mg/dL 131-200 [facility] ([facility]) Triglyceride [Mass/volume] in Serum or Plasma 88 mg/dL 30-150 [facility] ([facility]) Cholesterol in LDL [Mass/volume] in Serum or Plasma by calcu lation 55 CALC 50-159 [facility] ([facility]) ID Date Data Source [id number] 11/28/2020 10:45:00 AM EDT [facility]) Name Value Range Interpretation Code Description Data Sophia rce(s) Supporting Document(s) Glucose [Mass/volume] in Serum or Plasma 94 mg/dL 74-99 [facility] ([facility]) 100-125 mg/dL PRE-DIABETES/FASTING >126 mg/dL DIABETES/FASTING Creatinine 1.0 mg/dL 0.6-1.3 [facility]) Urea nitrogen [Mass/volume] in Serum or Plasma 15 mg/dL 7-18 [facility] ([facility]) Potassium [Moles/volume] in Serum or Plasma 4.3 meq/L 3.5-5.1 [facility] ([facility]) Sodium [Moles/volume] in Serum or Plasma 143 meq/L 136-145 [facility] ([facility]) Chloride [Moles/volume] in Serum or Plasma 106 meq/L 98-107 [facility] ([facility]) Calcium [Mass/volume] in Serum or Plasma 9.5 mg/dL 8.5-10.1 [facility] ([facility]) Carbon dioxide, total [Moles/volume] in Serum or Plasma 25 meq/L 21 -32 [facility] ([facility]) Aspartate aminotransferase [Enzymatic activity/volume] in Serum or Plasma 22 U/L 15-37 [facility] ([facility] ) Alkaline phosphatase isoenzyme [Units/volume] in Serum or Pl asma 83 mg/dL 46-116 [facility] ([facility]) Total Bilirubin 0.5 mg/dL 0.2-1.0 [facility] ([facility]) Proteinase 3 Ab [Units/volume] in Serum 7.2 g/dL 6.4-8.2 [facility] ([facility]) Alanine aminotransferase [Enzymatic activity/volume] in Seru m or Plasma 30 U/L 12-78 [facility] ([facility]) Albumin [Mass/volume] in Serum or Plasma 4.3 g/dL 3.4-5.0 [facility] ([facility]) A/G Ratio 1.48 CALC 1.00-1.90 [facility]) Glomerular filtration rate/1.73 sq M pre dicted among non-blacks [Volume Rate/Area] in Serum or Plasma by Creatinine-based formula (MDRD) Laboratory test result [facility] Glomerular filtration rate/1.73 sq M pre dicted among blacks [Volume Rate/Area] in Serum or Plasma by Creatinine-based formula (MDRD) Laboratory test result [facility] ([facility]) <content>CHRONIC KIDNEY DISEASE STAGING PER NKF</content>
<content></content>
<content>STAGE I & II GFR >= 60 NORMAL TO MILDLY DECREASED</content>
<content>STAGE III GFR 30-59 MODERATELY DECREASED</content>
<content>STAGE IV GFR 15-29 SEVERELY DECREASED</content>
<content>STAGE V GFR <15 VERY LITTLE GFR LEFT</content>
<content>ESRD GFR <15 ON INSTITUTIONAL COOK</content>
<content></content> ID Date Data Source [id number] 11/28/2020 10:45:00 AM EDT [facility] ([facility]) Name Value Range Interpretation Code Description Data Sophia rce(s) Supporting Document(s) Glucose mean value [Mass/volume] in Blood Estimated fr om glycated hemoglobin 125 mg/dL 60-110 [facility] Hemoglobin A1c/Hemoglobin.total in Blood 6.0 % [facility] ([facility]) Lab Result Notes: Pre-Diabetes 5.7 - 6.4 % Diabetes = or > 6.5% ID Date Data Source [id number] 11/28/2020 10:45:00 AM EDT [facility] ([facility]) Name Value Range Interpretation Code Description Data Sophia rce(s) Supporting Document(s) Leukocytes [#/volume] in Blood by Automated count 8.7 x10*3/UL 4.1-10 .9 [facility] ([facility] Hematocrit [Volume Fraction] of Blood by Automated count 43.2 % 3 7.0-51.0 [facility] ([facility] Hemoglobin [Mass/volume] in Blood 14.5 g/dL 12.0-18.0 [facility] Erythrocytes [#/volume] in Blood by Automated count 5.33 x10*6/UL 4.2 0-6.30 [facility] ([facility]) MCV 81.0 fL 80.0-97.0 [facility] MCH 27.3 pg 26.0-32.0 [facility] ([facility]) Platelets [#/volume] in Blood by Automated count 229 x10*3/UL 140-440 [facility] Erythrocyte distribution width [Ratio] by Automated count 13.2 % 11.6-13.7 [facility] ([facility]) MCHC 33.7 g/dL 31.0-38.0 [facility] Lymph % 26.8 % 10.0-58.5 [facility]) MPV 8.7 FL 7.8-11.0 [facility]) Mid % 6.9 % 1.7-9.3 [facility]) Lymph # 2.3 x10*3/UL 0.6-4.1 [facility] ([facility]) Neut % 66.3 % 37.0-92.0 [facility] Mid # 0.7 x10*3/UL 0.1-0.6 [facility] ([facility]) Neut # 5.7 x10*3/UL 2.0-7.8 [facility] ([facility]) ID Date Data Source [id number] 11/28/2020 10:45:00 AM EDT [facility] ([facility]) Name Value Range Interpretation Code Description Data Sophia rce(s) Supporting Document(s) Hemoglobin A1c/Hemoglobin.total in Blood Laboratory test result [facility] ([facility]) ID Date Data Source [id number] 06/15/2020 05:06:11 PM [facility] XR KNEE 4 OR MORE VIEWS 21283RIKUS RESUL TInterpreted by:Joni Gamez MDTechnique: Weightbearing AP, Clements, lateral, nonweightbearing merchant view of the right kneeComparison: NoneFindings: Moderate medial and lateral joint space narrowing with some medial osteophyte formation. Some chondrocalcinosis. Moderate patellofemoral degenerative change.Patellar alignment is normal. There is no effusion.No fracture or dislocation is identified. No other soft tissue or bony lesions identified. Impression:1. Moderate tricompartmental osteoarthritis with chondrocalcinosisThis document has been electronically signed by Joni Gamez MD on 06/15/2020 5:06 PM Name Value Range Interpretation Code Description Data Sophia rce(s) Supporting Document(s) ID Date Data Source [id number] 06/15/2020 12:27:42 PM [facility] Name Value Range Interpretation Code Description Data Sophia rce(s) Supporting Document(s) Progress Note [facility] LJGHCp8xRzBGSxHr65/FHFezUKPmd9DrUCxtVKo2DBmfWWZiF9YyJAR0oY3jFOU1YByOHlFzWuKfAZB3 lbm [file] Alejandro+ X/8ghpLaI6Ye6FnkyqiH7s4st+yX8/jJvsYklXbh3FcGHLGg40r6JzobIqxABI2xP2RuGCecIvE1zJhN KTpmO0mQsaDA0mC5737ZKXeGnO7Rgp2jawAO7icR9TkwRrcYvwn3aA2pHkifGkD27YHMYPKyYstn0PmE lxShdA3kYkyc8+zqk0IQNi8zI6/SX6gZW3e3x2y+5Y p+RXc9d++GsMBR3jutd2/KNGC4prkzCCDNBVH29+Ty4fq59agbjT3le1e1mfzH36rwosiLyrx9jEdOs5 UOzi1WfJeyEy+B1MDUzPt8Npfm7vkiNG2LcbOqsW3FdnjJfmH5QJrY+a7sf5o9ge7AzHtMoyj/+aGY1/ ZYFYybgVgFRYI21TNGKTZNdp0Onlkc+UHVDVQ1xoCo [file] 4+KAzyyVSlcQluHBUNZhW2EVA9SRfvDMGIXh1R ID Date Data Source [id number] 05/30/2020 07:43:00 AM EST [facility] ([facility]) Name Value Range Interpretation Code Description Data Sophia rce(s) Supporting Document(s) Microalbumin Urine 8.6 mg/L 1.3-20.0 [facility] ([facility]) Microalb/Creat Ratio 3.7 ug/mg 0.0-30.0 [facility] ([facility]) Urine Creatinine 234.0 mg/dL 30.0-125.0 [facility] ([facility]) ID Date Data Source [id number] 05/30/2020 07:43:00 AM EST [facility] ([facility]) Name Value Range Interpretation Code Description Data Sophia rce(s) Supporting Document(s) Cholesterol [Mass/volume] in Serum or Plasma 120 mg/dL 131-200 [facility] ([facility]) Triglyceride [Mass/volume] in Serum or Plasma 60 mg/dL 30-150 [facility] ([facility]) Cholesterol in HDL [Mass/volume] in Serum or Plasma 48 mg/dL 35-60 [facility] ([facility]) Cholesterol in LDL [Mass/volume] in Serum or Plasma by calcu lation 60 CALC 50-159 [facility] ([facility]) ID Date Data Source [id number] 05/30/2020 07:43:00 AM EST [facility] ([facility]) Name Value Range Interpretation Code Description Data Sophia rce(s) Supporting Document(s) Glucose [Mass/volume] in Serum or Plasma 94 mg/dL 74-99 [facility] ([facility]) 100-125 mg/dL PRE-DIABETES/FASTING >126 mg/dL DIABETES/FASTING Creatinine 0.9 mg/dL 0.6-1.3 [facility] Urea nitrogen [Mass/volume] in Serum or Plasma 18 mg/dL 7-18 [facility] ([facility]) Sodium [Moles/volume] in Serum or Plasma 142 meq/L 136-145 [facility] ([facility]) Chloride [Moles/volume] in Serum or Plasma 104 meq/L 98-107 [facility] ([facility]) Calcium [Mass/volume] in Serum or Plasma 9.4 mg/dL 8.5-10.1 [facility] ([facility]) Potassium [Moles/volume] in Serum or Plasma 4.5 meq/L 3.5-5.1 [facility] ([facility]) Carbon dioxide, total [Moles/volume] in Serum or Plasma 28 meq/L 21 -32 [facility] ([facility]) Aspartate aminotransferase [Enzymatic activity/volume] in Serum or Plasma 24 U/L 15-37 [facility] ([facility] ) Alanine aminotransferase [Enzymatic activity/volume] in Seru m or Plasma 35 U/L 12-78 [facility] ([facility]) Alkaline phosphatase isoenzyme [Units/volume] in Serum or Pl asma 76 mg/dL 46-116 [facility] ([facility]) Total Bilirubin 0.7 mg/dL 0.2-1.0 [facility] ([facility]) Proteinase 3 Ab [Units/volume] in Serum 7.0 g/dL 6.4-8.2 [facility] ([facility]) Albumin [Mass/volume] in Serum or Plasma 4.4 g/dL 3.4-5.0 [facility] ([facility]) A/G Ratio 1.69 CALC 1.00-1.90 [facility]) Glomerular filtration rate/1.73 sq M pre dicted among non-blacks [Volume Rate/Area] in Serum or Plasma by Creatinine-based formula (MDRD) Laboratory test result [facility] ([facility] ) Glomerular filtration rate/1.73 sq M pre dicted among blacks [Volume Rate/Area] in Serum or Plasma by Creatinine-based formula (MDRD) Laboratory test [facility] <content>CHRONIC KIDNEY DISEASE STAGING PER NKF</content>
<content></content>
<content>STAGE I & II GFR >= 60 NORMAL TO MILDLY DECREASED</content>
<content>STAGE III GFR 30-59 MODERATELY DECREASED</content>
<content>STAGE IV GFR 15-29 SEVERELY DECREASED</content>
<content>STAGE V GFR <15 VERY LITTLE GFR LEFT</content>
<content>ESRD GFR <15 ON INSTITUTIONAL COOK</content>
<content></content> ID Date Data Source [id number] 05/30/2020 07:43:00 AM EST [facility] ([facility] Name Value Range Interpretation Code Description Data Sophia rce(s) Supporting Document(s) Glucose mean value [Mass/volume] in Blood Estimated fr om glycated hemoglobin 111 mg/dL 60-110 [facility] Hemoglobin A1c/Hemoglobin.total in Blood 5.5 % [facility] Lab Result Notes: Pre-Diabetes 5.7 - 6.4 % Diabetes = or > 6.5% Procedure Social History Code Duration Value Status Description Data Source(s ) Alcohol intake 06/15/2020 12:00:00 AM EST Current drinker of al cohol (finding) completed Current drinker of alcohol (finding) [facility] Tobacco use and exposure 06/15/2020 12:00:00 AM EST Never used co mpleted Never used [facility] Smoking 06/15/2020 12:00:00 AM EST Never smoker completed Never s [facility] Alcohol intake 03/14/2020 12:00:00 AM EDT Current drinker of al cohol (finding) completed Current drinker of alcohol (finding) [facility] Vital Signs ID Date Data Source UNK Name Value Range Interpretation Code Description Data Source(s) Body surface area Derived from formula 2.19 m2 2.19 m2 [facility] Body height 70 [in_i] 70 [in_i] [facility] ([facility]) 5'10" Body weight 225.00 [lb_av] 225.00 [lb_av] [facility] ([facility]) Body mass index (BMI) [Ratio] 32.3 kg/m2 32.3 k g/m2 [facility] ([facility]) [place] body weight 166 [lb_av] 166 [lb_av] [facility] ([facility]) Body weight 102.060 kg 102.060 kg [facility] ([facility]) Respiratory rate 16 /min 16 /min [facility] Diastolic blood pressure 80 mm[Hg] 80 mm[Hg] [facility] Heart rate 16 /min 16 /min [facility] Systolic blood pressure 130 mm[Hg] 130 mm[Hg] [facility] Body height 177.8 cm 177.8 cm [facility] Body weight 101.606 kg 101.606 kg [facility] Body mass index (BMI) [Ratio] 32.14 kg/m2 32.14 kg/m2 [facility] Body surface area Derived from formula 2.19 m2 2.19 m2 [facility] ([facility]) [place] body weight 166 [lb_av] 166 [lb_av] [facility] ([facility]) Body weight 225.00 [lb_av] 225.00 [lb_av] [facility] ([facility]) Body height 70 [in_i] 70 [in_i] [facility] ([facility]) 5'10" Body mass index (BMI) [Ratio] 32.3 kg/m2 32.3 k g/m2 [facility] ([facility]) Body weight 102.060 kg 102.060 kg [facility] ([facility]) Body height 70 [in_i] 70 [in_i] [facility] ([facility]) 5'10" Body weight 220.00 [lb_av] 220.00 [lb_av] [facility] ([facility]) [place] body weight 166 [lb_av] 166 [lb_av] [facility] ([facility]) Body surface area Derived from formula 2.17 m2 2.17 m2 [facility] ([facility]) Body mass index (BMI) [Ratio] 31.6 kg/m2 31.6 k g/m2 [facility] ([facility]) Body weight 99.792 kg [facility].792 [facility] Body height 70 [in_i] 70 [in_i] [facility] 5'10" Body weight 222.00 [lb_av] 222.00 [lb_av] [facility] ([facility]) Systolic blood pressure 117 mm[Hg] 117 mm[Hg] [facility] ([facility]) Diastolic blood pressure 84 mm[Hg] 84 mm[Hg] [facility] ([facility]) Heart rate 80 /min 80 /min [facility]) Body mass index (BMI) [Ratio] 31.9 kg/m2 31.9 k g/m2 [facility] ([facility]) Body weight 100.699 kg 100.699 kg [facility]) Body temperature 97.2 [degF] 97.2 [degF] [facility] ([facility]) Body temperature 96.9 [degF] 96.9 [degF] [facility] ([facility] Body height 68.50 [in_i] 68.50 [in_i] [facility] ([facility] 5'8.50" Body weight 213.12 [lb_av] 213.12 [lb_av] [facility] ([facility] ) Body mass index (BMI) [Ratio] 31.9 kg/m2 31.9 k g/m2 [facility] ([facility] ) Body weight 223.00 [lb_av] 223.00 [lb_av] [facility] ([facility]) Systolic blood pressure 122 mm[Hg] 122 mm[Hg] M [facility] ([facility]) Diastolic blood pressure 72 mm[Hg] 72 mm[Hg] [facility] ([facility]) Heart rate 68 /min 68 /min [facility] ([facility]) Body height 69.50 [in_i] 69.50 [in_i] [facility] ([facility]) 5'9.50" Body mass index (BMI) [Ratio] 32.5 kg/m2 32.5 k g/m2 [facility] ([facility]) Body height 70 [in_i] 70 [in_i] [facility] ([facility]) 5'10" Body weight 210.00 [lb_av] 210.00 [lb_av] [facility] ([facility]) Body mass index (BMI) [Ratio] 30.1 kg/m2 30.1 k g/m2 [facility] ([facility]) [place] body weight 166 [lb_av] 166 [lb_av] [facility] ([facility]) Body weight 95.256 kg 95.256 kg [facility] ([facility]) Body surface area Derived from formula 2.13 m2 2.13 m2 [facility] ([facility]) Body height 70 [in_i] 70 [in_i] [facility] ([facility]) 5'10" Body weight 210.00 [lb_av] 210.00 [lb_av] [facility] ([facility]) Body mass index (BMI) [Ratio] 30.1 kg/m2 30.1 k g/m2 [facility] ([facility]) [place] body weight 166 [lb_av] 166 [lb_av] [facility] ([facility]) Body weight 95.256 kg 95.256 kg [facility] ([facility]) Body surface area Derived from formula 2.13 m2 2.13 m2 [facility] ([facility]) Oxygen saturation in Arterial blood by Pulse oximetry 99 % 99 % [facility] Systolic blood pressure 102 mm[Hg] 102 mm[Hg] [facility] ([facility]) Diastolic blood pressure 72 mm[Hg] 72 mm[Hg] [facility] Heart rate 72 /min 72 /min [facility] ([facility]) Body height 69.50 [in_i] 69.50 [in_i] [facility] ([facility]) 5'9.50" Body weight 205.00 [lb_av] 205.00 [lb_av] [facility] ([facility]) Body mass index (BMI) [Ratio] 29.8 kg/m2 29.8 k g/m2 [facility] ([facility]) ID Date Data Source [id number] 06/21/2020 12:17:31 PM [facility] Name Value Range Interpretation Code Description Data Source(s) WEIGHT RECORDED 210 lb 210 lb [facility] Body height Measured 70 in 70 in [facility] Patient Treatment Plan of Care Planned Activity Planned Date Details Description Data Source (s) Omeprazole 20 MG Delayed Release Oral Capsule 06/05/2020 12:00:00 A M [facility] atorvastatin 40 MG Oral Tablet 06/05/2020 12:00:00 AM [facility] clopidogrel 75 MG Oral Tablet 06/05/2020 12:00:00 AM [facility] 60 ACTUAT Fluticasone propionate 0.25 MG /ACTUAT / salmeterol 0.05 MG/ACTUAT Dry Powder Inhaler 03/06/2020 12:00:00 AM EDT [facility] Nitroglycerin 0.4 MG Sublingual Tablet [facility]
--- OUTSIDE RECORDS SUMMARY | 2021-04-23 09:15 | CCD | Continuity of Care Document ---
Author Author Yuri NOLASCO MD Organization Unknown Address [address] [place] [address] Phone [phone] Care Team Providers Care Plastic Machine Operator Name Role Phone Justin Garrison JOSE AUTM [phone] Pernell Reyes M.D. AUTM [phone] Problems Active Problems Provider Date Allergic asthma [...] Capsule By Mouth Daily Unknown 0 Nystatin 320996Nesc/ML Suspension 5ml swish in the mouth several minuts before swallowing four times a day for 7 days Unknown Immunizations Description No Information Available Vital Signs Date Vital Result Comment 03/14/2021 8:12am Height 70 inches 5'10" Weight 220.00 lb BMI (Body Mass Index) 31.6 kg/m2 [place] Body Weight 166 lb Weight 99.792 kg BSA (Body Surface Area) 2.17 m2 11/08/2020 8:21am Height 70 inches 5'10" Weight 210.00 lb BMI (Body Mass Index) 30.1 kg/m2 [place] Body Weight 166 lb Weight 95.256 kg BSA (Body Surface Area) 2.13 m2 Results Description No Information Available Procedures Date Code Description Status 03/14/2021 74165 Office/Outpatient Established Mo d MDM 30-39 Min Completed 11/08/2020 22742 Office/Outpatient Established SF MDM 10-19 Min Completed Medical Devices Description No Information Available Encounters Type Date Location Provider Dx Diagnosis Office Visit 03/14/2021 8:15a [facility] Abdirahman Nolasco MD 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, including tongue Office Visit 11/08/2020 8:15a [facility] Abdirahman Nolasco MD 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, including tongue Assessments Date Code Description Provider 03/14/2021 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, incl uding tongue Abdirahman Nolasco MD 11/08/2020 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, incl uding tongue Abdirahman Nolasco MD Plan of Treatment Future Appointment(s):* 03/28/2021 7:00 am - Abdirahman Nolasco MD at [facility] * 05/10/2021 8:00 am - Abdirahman Nolasco MD at [facility] 03/14/2021 - Abdirahman Nolasco MD* 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
--- OUTSIDE RECORDS SUMMARY | 2021-04-23 09:15 | CCD | Continuity of Care Document ---
Author Author Yuri NOLASCO MD Organization Unknown Address [address] [facility] [address] [place] [address] Phone [phone] Care Team Providers Care Novelty Maker Name Role Phone Justin Garrison JOSE AUTM [phone] Pernell Reyes M.D. AUTM [phone] Problems Active Problems Provider Date Allergic asthma [...] Capsule By Mouth Daily Unknown 0 Nystatin 130807Tenm/ML Suspension 5ml swish in the mouth several minuts before swallowing four times a day for 7 days Unknown Immunizations Description No Information Available Vital Signs Date Vital Result Comment 03/14/2021 8:12am Height 70 inches 5'10" Weight 220.00 lb BMI (Body Mass Index) 31.6 kg/m2 [place] Body Weight 166 lb Weight 99.792 kg BSA (Body Surface Area) 2.17 m2 11/08/2020 8:21am Height 70 inches 5'10" Weight 210.00 lb BMI (Body Mass Index) 30.1 kg/m2 [place] Body Weight 166 lb Weight 95.256 kg BSA (Body Surface Area) 2.13 m2 Results Description No Information Available Procedures Date Code Description Status 11/08/2020 26783 Office/Outpatient Established MDM 10-19 Min Completed Medical Devices Description No Information Available Encounters Type Date Location Provider Dx Diagnosis Office Visit 11/08/2020 8:15a [facility] Abdirahman Nolasco MD 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, including tongue Assessments Date Code Description Provider 03/14/2021 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, incl uding tongue Abdirahman Nolasco MD 11/08/2020 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, incl uding tongue Abdirahman Nolsaco MD Plan of Treatment Future Appointment(s):* 03/28/2021 7:00 am - Abdirahman Nolasco MD at [facility] * 05/10/2021 8:00 am - Abdirahman Nolasco MD at [facility] 03/14/2021 - Abdirahman Nolasco MD* 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
[2021-04-23] MEDS ORDERED: propofoL 200 MG/20 ML VIAL As Ordered ONE (11:03)
--- NOTE | 2021-04-23 11:09 | ROOR ---
Patient Name: Yuri Arthur Procedure Date: 04/23/2021 10:48 AM Date of : 1950 Age: 70 Room: [facility] Gender: Male Note Status: Finalized Procedure: Total Colonoscopy to Cecum + ileoscopy Indications: High risk colon cancer surveillance: Personal history of colonic polyps, Last colonoscopy: 2015 Providers: Joseph Dickerson MD Referring MD: Pernell Reyes MD Requesting Provider: Medicines: Monitored Anesthesia Care Complications: No immediate complications. Procedure: Pre-Anesthesia Assessment: - The heart rate, respiratory rate, oxygen saturations, blood pressure, adequacy of pulmonary ventilation, and response to care were monitored throughout the procedure. The Colonoscope was introduced through the anus and advanced to the cecum, identified by appendiceal orifice and ileocecal valve. The colonoscopy was performed without difficulty. The patient tolerated the procedure well. The quality of the bowel preparation was excellent. Findings: The perianal and digital rectal examinations were normal. Non-bleeding internal hemorrhoids were found during retroflexion. The hemorrhoids were small and Grade I (internal hemorrhoids that do not prolapse). Multiple small and large-mouthed diverticula were found in the recto-sigmoid colon, sigmoid colon and descending colon. The exam was otherwise without abnormality on direct and retroflexion views. The terminal ileum appeared normal. Impression: - Non-bleeding internal hemorrhoids. - Diverticulosis in the recto-sigmoid colon, in the sigmoid colon and in the descending colon. - The examination was otherwise normal on direct and retroflexion views. - The examined portion of the ileum was normal. - No specimens collected. - The exam was otherwise normal to the cecum. Recommendation: - Patient has a contact number available for emergencies. The signs and symptoms of potential delayed complications were discussed with the patient. Return to normal activities tomorrow. Written discharge instructions were provided to the patient. - High fiber diet. - Discharge patient to home. - Continue present medications. - Repeat colonoscopy in 5 years for screening purposes. - Return to referring physician. - The findings and recommendations were discussed with the patient. Procedure Code(s): --- Professional --- G0105, Colorectal cancer screening; colonoscopy on individual at high risk Diagnosis Code(s): --- Professional --- Z86.010, Personal history of colonic polyps K64.0, First degree hemorrhoids K57.30, Diverticulosis of large intestine without perforation or abscess without bleeding CPT copyright 2019 [employer]. All rights reserved. The codes documented in this report are preliminary and upon corn detasseler review may be revised to meet current compliance requirements. Joseph Dickerson MD Joseph Dickerson MD 04/23/2021 11:09:08 AM Electronically signed by Joseph Dickerson MD Number of Addenda: 0 Note Initiated On: 04/23/2021 10:48 AM Estimated Blood Loss: Estimated blood loss: none.
[2021-04-23 11:20] VITALS: BP 116/67
== END 2021-04-23 11:22 | disposition home or self-care (01) ==
LOC: M OPP 08:36
PROVIDERS: ATTEND Internal Medicine Gastroenterology
DX: Z12.11 Encounter for screening for malignant neoplasm of colon (principal); K64.0 First degree hemorrhoids; K57.30 Diverticulosis of large intestine without perforation or abscess without bleeding; Z86.010 Personal history of colon polyps; I10 Essential (primary) hypertension; E78.5 Hyperlipidemia, unspecified; Z95.5 Presence of coronary angioplasty implant and graft; Z79.82 Long term (current) use of aspirin; Z79.899 Other long term (current) drug therapy; Z88.0 Allergy status to penicillin

== ENCOUNTER → 2021-09-14 | Outpatient (CLI) | payer MEDICARE, OTHER ==
[~2021-09-14] MED LIST changes: +ADV250INH INH; +MEDR4PAK PO; -NS 1,000 ML IV ONE; +OMEP-173 PO; -OMEP-218 PO; +OXYC-517 PO; +PRED20TA PO
== END ==
LOC: M ONCR 13:49
PROVIDERS: ATTEND General Practice
DX: C03.1 Malignant neoplasm of lower gum (principal); Z88.0 Allergy status to penicillin; Z79.82 Long term (current) use of aspirin
CPT/HCPCS: 31575; G0463

== ENCOUNTER → 2021-09-18 | Outpatient (CLI) | payer MEDICARE, OTHER ==
[2021-09-18 13:10] LABS: BLOOD UREA NITROGEN 10 MG/DL (7-18); CREATININE FOR GFR 0.88 MG/DL (0.70-1.30); GLOMERULAR FILTRATION RATE > 60.0 (>42)
== END ==
LOC: M LAB 11:43
PROVIDERS: ATTEND Otolaryngology
DX: C03.1 Malignant neoplasm of lower gum (principal)

== ENCOUNTER → 2021-09-20 | Outpatient (CLI) | payer MEDICARE, OTHER ==
[~2021-09-20] MED LIST changes: +ISOVUE-370 76% 100ML VIAL As Ordered ONE
== END ==
LOC: M RAD 07:28
PROVIDERS: ATTEND Otolaryngology
DX: M79.9 Soft tissue disorder, unspecified (principal); C03.1 Malignant neoplasm of lower gum; G45.1 Carotid artery syndrome (hemispheric)
CPT/HCPCS: 70491; Q9967

== ENCOUNTER → 2021-12-05 | Outpatient (CLI) | payer MEDICARE, OTHER ==
[~2021-12-05] MED LIST changes: -ISOVUE-370 76% 100ML VIAL As Ordered ONE
== END ==
LOC: M ONCR 08:33
PROVIDERS: ATTEND General Practice
DX: C03.1 Malignant neoplasm of lower gum (principal); Z88.0 Allergy status to penicillin; Z79.82 Long term (current) use of aspirin; Z79.51 Long term (current) use of inhaled steroids; Z79.899 Other long term (current) drug therapy
CPT/HCPCS: 31575; G0463

== ENCOUNTER 2021-12-10 10:16 | Outpatient (RCR) | payer MEDICARE, OTHER ==
[2021-12-14] MEDS ORDERED: CENT1TAB PO (14:54)
[2021-12-25] MEDS ORDERED: PROC10TA5 PO (10:35)
[2021-12-25] MEDS ORDERED: ONDA-84 PO (10:35)
== END 2021-12-30 ==
LOC: M ONCR 10:16
PROVIDERS: ATTEND General Practice
DX: C03.1 Malignant neoplasm of lower gum (principal)

== ENCOUNTER → 2021-12-11 | Outpatient (REF) | payer MEDICARE, OTHER | LOC: M LAB REF 17:46 | PROVIDERS: ATTEND Family Medicine | DX: M10.9 Gout, unspecified (principal) ==

== ENCOUNTER → 2021-12-18 | Outpatient (POV) | payer MEDICARE, OTHER ==
[~2021-12-18] VITALS: Ht 177.8 cm; Wt 78.1 kg
[~2021-12-18] MED LIST changes: +CENT1TAB PO
[2021-12-18 09:30] VITALS: BP 122/70
== END ==
LOC: M IRPOV 09:25
PROVIDERS: ATTEND Radiology Diagnostic Radiology
DX: C76.0 Malignant neoplasm of head, face and neck (principal); R13.10 Dysphagia, unspecified; Z79.01 Long term (current) use of anticoagulants; Z79.82 Long term (current) use of aspirin; Z85.820 Personal history of malignant melanoma of skin; Z85.828 Personal history of other malignant neoplasm of skin; Z79.899 Other long term (current) drug therapy; Z80.3 Family history of malignant neoplasm of breast; Z88.0 Allergy status to penicillin; Z95.5 Presence of coronary angioplasty implant and graft

== ENCOUNTER → 2021-12-23 | Outpatient (CLI) | payer MEDICARE, OTHER | LOC: M LABSMTC 11:21 | PROVIDERS: ATTEND Anesthesiology | DX: Z11.52 Encounter for screening for COVID-19 (principal); Z20.822 Contact with and (suspected) exposure to COVID-19 ==

== ENCOUNTER → 2021-12-24 | Outpatient (CLI) | payer MEDICARE, OTHER ==
[~2021-12-24] MED LIST changes: +LIDOCAINE 1% MDV 20ML VIAL As Ordered ONE; +MIDAZOLAM INJ 2MG/2ML VIAL (J2250 PER 1MG) As Ordered ONE; +NS 1,000 ML IV SCH; +ONDA-84 PO; +PROC10TA5 PO; +VANCOMYCIN 1000MG/20ML VIAL As Ordered ONE; +VANCOMYCIN HCL 1,000 MG, VIAL MATE ADAPTER 1 EACH in NS 250 ML IV ONE; +diphenhydrAMINE 50MG/ML VIAL (J1200) As Ordered ONE; +fentaNYL 100 MCG/2 ML INJECTION As Ordered ONE
[2021-12-24 12:50] VITALS: BP 130/78
== END ==
LOC: M IRPRO 08:40
PROVIDERS: ATTEND General Practice
DX: C03.1 Malignant neoplasm of lower gum (principal)
CPT/HCPCS: 36561; 99152; 99153; C1769; C1788; C1894; J1200; J1642; J1644; J2250; J3010; J3370

== ENCOUNTER → 2021-12-27 | Outpatient (CLI) | payer MEDICARE, OTHER ==
[~2021-12-27] MED LIST changes: +CLINDAMYCIN 600 MG in IV 1 EA IV ONE; +CLINDAMYCIN 600MG/50ML PREMIX BAG As Ordered ONE; +GLUCAGON INJ 1MG VIAL As Ordered ONE; +ISOVUE-300 61% 50ML VIAL As Ordered ONE; +LIDOCAINE 2% JELLY 5ML TUBE As Ordered ONE; -VANCOMYCIN 1000MG/20ML VIAL As Ordered ONE; -VANCOMYCIN HCL 1,000 MG, VIAL MATE ADAPTER 1 EACH in NS 250 ML IV ONE
[2021-12-27 10:30] VITALS: BP 117/77
== END ==
LOC: M IRPRO 06:52
PROVIDERS: ATTEND General Practice
DX: C03.1 Malignant neoplasm of lower gum (principal)
CPT/HCPCS: 49440; 99152; 99153; C1729; C1769; C1887; C1894; J1200; J1610; J2250; J3010; Q9967

== ENCOUNTER → 2022-01-15 | Outpatient (POV) | payer MEDICARE, OTHER ==
[~2022-01-15] VITALS: Ht 177.8 cm; Wt 75.9 kg
[~2022-01-15] MED LIST changes: -CLINDAMYCIN 600 MG in IV 1 EA IV ONE; -CLINDAMYCIN 600MG/50ML PREMIX BAG As Ordered ONE; -GLUCAGON INJ 1MG VIAL As Ordered ONE; -ISOVUE-300 61% 50ML VIAL As Ordered ONE; +LIDO2SOL17 PO; -LIDOCAINE 1% MDV 20ML VIAL As Ordered ONE; -LIDOCAINE 2% JELLY 5ML TUBE As Ordered ONE; +MAGICMW SSP; -MIDAZOLAM INJ 2MG/2ML VIAL (J2250 PER 1MG) As Ordered ONE; -NS 1,000 ML IV SCH; -diphenhydrAMINE 50MG/ML VIAL (J1200) As Ordered ONE; -fentaNYL 100 MCG/2 ML INJECTION As Ordered ONE
[2022-01-15 09:15] VITALS: BP 132/74
== END ==
LOC: M IRPOV 08:59
PROVIDERS: ATTEND Radiology Diagnostic Radiology
DX: Z48.812 Encounter for surgical aftercare following surgery on the circulatory system (principal); Z48.815 Encounter for surgical aftercare following surgery on the digestive system; Z45.2 Encounter for adjustment and management of vascular access device; Z43.1 Encounter for attention to gastrostomy

== ENCOUNTER → 2022-01-15 | Outpatient (CLI) | payer MEDICARE, OTHER | LOC: M ONCR 09:02 | PROVIDERS: ATTEND Dietitian, Registered | DX: Z01.89 Encounter for other specified special examinations (principal) ==

== ENCOUNTER 2022-01-28 07:49 | Outpatient (RCR) | payer MEDICARE, OTHER | END 2022-01-30 | LOC: M ST 07:49 | PROVIDERS: ATTEND General Practice | DX: C03.1 Malignant neoplasm of lower gum (principal); F80.0 Phonological disorder ==

== ENCOUNTER → 2022-01-30 | Outpatient (RCR) | payer MEDICARE, OTHER | LOC: M ONCR 12-31 08:52 | PROVIDERS: ATTEND General Practice | DX: C03.1 Malignant neoplasm of lower gum (principal) ==

== ENCOUNTER → 2022-02-06 | Outpatient (CLI) | payer MEDICARE, OTHER ==
[~2022-02-06] MED LIST changes: +LANS30TA9 PO; +NYST50SS; +PEPC10TA6 PO; +PROA1AER2 IN
== END ==
LOC: M ONCR 08:19
PROVIDERS: ATTEND Dietitian, Registered
DX: Z01.89 Encounter for other specified special examinations (principal)

== ENCOUNTER 2022-02-15 08:50 | Outpatient (RCR) | payer MEDICARE, OTHER ==
[~2022-02-15 08:50] MED LIST changes: -LANS30TA9 PO; -NYST50SS; -PEPC10TA6 PO; -PROA1AER2 IN
== END 2022-03-01 ==
LOC: M ONCR 08:50
PROVIDERS: ATTEND General Practice
DX: C03.1 Malignant neoplasm of lower gum (principal)

== ENCOUNTER 2022-02-26 08:54 | Outpatient (RCR) | payer MEDICARE, OTHER | END 2022-03-01 | LOC: M ST 08:54 | PROVIDERS: ATTEND General Practice | DX: C03.1 Malignant neoplasm of lower gum (principal) ==

== ENCOUNTER → 2022-03-08 | Outpatient (REF) | payer MEDICARE, OTHER | LOC: M LAB REF 12:26 | PROVIDERS: ATTEND Family Medicine | DX: M10.9 Gout, unspecified (principal) ==

== ENCOUNTER 2022-03-20 08:50 | Outpatient (RCR) | payer MEDICARE, OTHER ==
[2022-04-02] MEDS ORDERED: LANS30TA9 PO (07:45)
[2022-04-02] MEDS ORDERED: PEPC10TA6 PO (07:52)
[2022-04-02] MEDS ORDERED: PROA1AER2 IN (08:07)
[2022-04-17] MEDS ORDERED: NYST50SS (08:09)
== END 2022-04-01 23:59 | disposition home or self-care (01) ==
LOC: M ST 08:50
PROVIDERS: ATTEND General Practice
DX: C03.1 Malignant neoplasm of lower gum (principal)

== ENCOUNTER → 2022-04-10 | Outpatient (CLI) | payer MEDICARE, OTHER ==
[~2022-04-10] MED LIST changes: +LANS30TA9 PO; +PEPC10TA6 PO; +PROA1AER2 IN
== END ==
LOC: M LABSMTC 09:35
PROVIDERS: ATTEND Anesthesiology
DX: Z01.812 Encounter for preprocedural laboratory examination (principal); Z20.822 Contact with and (suspected) exposure to COVID-19

== ENCOUNTER 2022-04-15 08:15 | Day surgery (SDC) | payer MEDICARE, OTHER ==
[~2022-04-15] VITALS: Ht 177.8 cm; Wt 74.8 kg
[~2022-04-15 08:15] MED LIST changes: +LIDOCAINE 2% 100MG/5ML SDV (FOR ANES.) As Ordered ONE; +NS 1,000 ML IV ONE; +propofoL 200 MG/20 ML VIAL As Ordered ONE
[2022-04-15 09:57] VITALS: BP 111/66
[2022-04-17] MEDS ORDERED: NYST50SS (08:09)
== END 2022-04-15 10:08 | disposition home or self-care (01) ==
LOC: M OPP 08:15
PROVIDERS: ATTEND Internal Medicine Gastroenterology
DX: K55.20 Angiodysplasia of colon without hemorrhage (principal); K64.0 First degree hemorrhoids; K57.30 Diverticulosis of large intestine without perforation or abscess without bleeding; Z79.02 Long term (current) use of antithrombotics/antiplatelets; Z79.51 Long term (current) use of inhaled steroids; Z79.82 Long term (current) use of aspirin; Z88.0 Allergy status to penicillin; I10 Essential (primary) hypertension; E78.5 Hyperlipidemia, unspecified; D50.9 Iron deficiency anemia, unspecified; J45.909 Unspecified asthma, uncomplicated; Z95.5 Presence of coronary angioplasty implant and graft; Z85.830 Personal history of malignant neoplasm of bone; Z85.819 Personal history of malignant neoplasm of unspecified site of lip, oral cavity, and pharynx; Z92.21 Personal history of antineoplastic chemotherapy; Z92.3 Personal history of irradiation

== ENCOUNTER 2022-04-30 08:55 | Outpatient (RCR) | payer MEDICARE, OTHER ==
[~2022-04-30 08:55] MED LIST changes: -LIDOCAINE 2% 100MG/5ML SDV (FOR ANES.) As Ordered ONE; -NS 1,000 ML IV ONE; +NYST50SS; -propofoL 200 MG/20 ML VIAL As Ordered ONE
== END 2022-05-01 ==
LOC: M ST 08:55
PROVIDERS: ATTEND General Practice
DX: C03.1 Malignant neoplasm of lower gum (principal)

== ENCOUNTER → 2022-05-02 | Outpatient (CLI) | payer MEDICARE, OTHER ==
[~2022-05-02] MED LIST changes: +SODIUM CHLORIDE 0.9% INJ 10 ML SYR IV PRN
[2022-05-02 13:53] LABS: ALBUMIN 3.4 G/DL (3.2-5.2); ALKALINE PHOSPHATASE 114 U/L (46-116); ALT/SGPT 12 U/L (7.0-40); AST/SGOT 15 U/L (<34); BILIRUBIN,TOTAL 0.3 MG/DL (0.3-1.2); BLOOD UREA NITROGEN 25 MG/DL (9-23); CALCIUM LEVEL 9.2 MG/DL (8.3-10.6); CARBON DIOXIDE LEVEL 28 MMOL/L (20-31); CHLORIDE LEVEL 100 MMOL/L (98-107); CREATININE FOR GFR 0.81 MG/DL (0.70-1.30); GLOMERULAR FILTRATION RATE > 60.0 (>42); GLUCOSE, FASTING 119 MG/DL (74-106); SODIUM LEVEL 137 MMOL/L (136-145); TOTAL PROTEIN 7.2 G/DL (5.7-8.2)
== END ==
LOC: M ONCR 12:42
PROVIDERS: ATTEND General Practice
DX: C03.1 Malignant neoplasm of lower gum (principal)

== ENCOUNTER → 2022-05-06 | Outpatient (CLI) | payer MEDICARE, OTHER ==
[~2022-05-06] MED LIST changes: +PROHANCE 279.3MG/ML 15ML VIAL As Ordered ONE; -SODIUM CHLORIDE 0.9% INJ 10 ML SYR IV PRN
== END ==
LOC: M RAD 12:15
PROVIDERS: ATTEND General Practice
DX: C03.1 Malignant neoplasm of lower gum (principal)
CPT/HCPCS: 70543; A9576

== ENCOUNTER → 2022-05-13 | Outpatient (CLI) | payer MEDICARE, OTHER ==
[~2022-05-13] MED LIST changes: +OMEP-173; -PROHANCE 279.3MG/ML 15ML VIAL As Ordered ONE
== END ==
LOC: M PLARAD 07:37
PROVIDERS: ATTEND Otolaryngology
DX: C02.1 Malignant neoplasm of border of tongue (principal); R93.0 Abnormal findings on diagnostic imaging of skull and head, not elsewhere classified; R91.8 Other nonspecific abnormal finding of lung field
CPT/HCPCS: 78815; A9552

== ENCOUNTER 2022-05-14 08:55 | Outpatient (RCR) | payer MEDICARE, OTHER ==
[~2022-05-14 08:55] MED LIST changes: +NYST-38; -NYST50SS; -OMEP-173
[2022-05-16] MEDS ORDERED: OMEP-173 (15:03)
[2022-05-30] MEDS ORDERED: SYST1SOL4 OP (09:20)
== END 2022-06-01 ==
LOC: M ST 08:55
PROVIDERS: ATTEND General Practice
DX: C03.1 Malignant neoplasm of lower gum (principal)

== ENCOUNTER → 2022-05-16 | Outpatient (CLI) | payer MEDICARE, OTHER ==
[~2022-05-16] MED LIST changes: +LIDOCAINE 2% MDV 20ML VIAL XX ONE; -NYST-38; +NYST50SS; +OMEP-173; +SYST1SOL4 OP
== END ==
LOC: M ONCR 10:46
PROVIDERS: ATTEND General Practice
DX: C03.1 Malignant neoplasm of lower gum (principal); C02.1 Malignant neoplasm of border of tongue; C04.0 Malignant neoplasm of anterior floor of mouth; C79.89 Secondary malignant neoplasm of other specified sites; H04.201 Unspecified epiphora, right side; R22.1 Localized swelling, mass and lump, neck; Z79.82 Long term (current) use of aspirin; Z79.51 Long term (current) use of inhaled steroids; Z88.0 Allergy status to penicillin; Z92.21 Personal history of antineoplastic chemotherapy; Z92.3 Personal history of irradiation
CPT/HCPCS: 10005; 31575; 88305; G0463

== ENCOUNTER 2022-06-25 07:55 | Outpatient (RCR) | payer MEDICARE, OTHER ==
[~2022-06-25 07:55] MED LIST changes: +LIDO15SO4 PO; -LIDO2SOL17 PO; -LIDOCAINE 2% MDV 20ML VIAL XX ONE; +NYST-38; -NYST50SS
[2022-06-25] MEDS ORDERED: ONDA-84 PO (08:13)
== END 2022-07-02 ==
LOC: M ONCR 07:55
PROVIDERS: ATTEND General Practice
DX: C03.1 Malignant neoplasm of lower gum (principal)

== ENCOUNTER → 2022-07-30 | Outpatient (RCR) | payer MEDICARE, OTHER ==
[~2022-07-30] MED LIST changes: +CIPR7.5D2; +LEVO25TA5 PO; +TRIA1CR80
== END ==
LOC: M ONCR 07-29 08:59
PROVIDERS: ATTEND General Practice
DX: C03.1 Malignant neoplasm of lower gum (principal)

== ENCOUNTER 2022-08-27 09:27 | Outpatient (RCR) | payer MEDICARE, OTHER ==
[~2022-08-27 09:27] MED LIST changes: +METO10TA2 PO; -OMEP-173; +SYST1SOL4 OD; -SYST1SOL4 OP; -TRIA1CR80; +TRIA1CR80 TOP
[2022-09-01] MEDS ORDERED: LEVO50TA5 PO (07:21)
== END 2022-08-30 ==
LOC: M ONCR 09:27
PROVIDERS: ATTEND General Practice
DX: C03.1 Malignant neoplasm of lower gum (principal)